=== PATIENT | female | born 1945 ===

== ENCOUNTER 2024-06-03 14:56 | Day surgery (SDC) | payer SELFPAY ==
[2024-06-03 14:53] VITALS: BP 195/85
[2024-06-03 14:59] VITALS: BMI 31.3
[2024-06-03 15:01] VITALS: BMI 31.3
[2024-06-03 19:12] VITALS: BP 170/85; BP 195/85
[2024-06-03 19:15] VITALS: BP 182/85
[2024-06-03 19:30] VITALS: BP 172/87
[2024-06-03 19:45] VITALS: BP 188/92
[2024-06-03 20:00] VITALS: BP 171/90
== END 2024-06-03 20:05 | disposition other institution (70) ==
LOC: SDS 14:56
PROVIDERS: ATTENDING PHYSICIAN Internal Medicine Gastroenterology; FAMILY PHYSICIAN Internal Medicine
DX: K83.9 Disease of biliary tract, unspecified (principal); K80.50 Calculus of bile duct without cholangitis or cholecystitis without obstruction; R93.2 Abnormal findings on diagnostic imaging of liver and biliary tract; Z79.01 Long term (current) use of anticoagulants
CPT/HCPCS: 43277; 43262; 43237; 74330; 76000; C1726; C1769